=== PATIENT | female | born 1985 | race Caucasian/White ===

== ENCOUNTER 2018-04-04 06:12 | Emergency (ER) | payer OTHER ==
[2018-04-04] MEDS: KETOROLAC 30 MG INJ IV (07:24)
[2018-04-04] MEDS: SOD CHLORIDE 0.9% 1,000 ML IV (07:24)
[2018-04-04] MEDS: DIPHENHYDRAMINE 50 MG INJ IV (07:24)
[2018-04-04] MEDS: ONDANSETRON 4 MG INJ IV (07:24)
== END 2018-04-04 10:21 | disposition home or self-care (01) ==
LOC: FTE 06:12
DX: R51 Headache (principal)
CPT/HCPCS: 70450; 81025; 96374; 96375; 99285-25